=== PATIENT | male | born 1975 | race African-American/Black ===

== ENCOUNTER 2018-05-21 14:35 | Emergency (ER) | payer MEDICAID ==
[~2018-05-21] VITALS: Ht 185.4 cm; Wt 77.3 kg
[2018-05-21 14:57] VITALS: Ht 185.4 cm; Wt 77.3 kg
[2018-05-21] MEDS ORDERED: SEROQUEL50 MG PO (15:00)
[2018-05-21] MEDS ORDERED: ZYPREXA5 MG PO (15:00)
[2018-05-21] MEDS ORDERED: HCTZ25 MG PO (15:01)
[2018-05-21 16:11] LABS: BASOPHILS 0.2 % (0-2); HEMATOCRIT 39.2 % (42.0-54.0); HEMOGLOBIN 13.6 g/dL (13.5-17.5); LYMPHOCYTES 41.5 % (15-50); MCH 29.2 pg (26.0-34.0); MCHC 34.7 g/dL (31.0-37.0); MCV 84.3 fL (80.0-100.0); MEAN PLATELET VOLUME 8.6 fL (7.4-10.4); NEUTROPHILS 43.3 % (40-80); PLATELET COUNT 269 10x3/uL (130-400); RBC 4.65 10x6/uL (4.20-6.10); RDW 14.2 % (11.5-14.5); WBC 4.1 10x3/uL (4.8-10.8)
[2018-05-21 16:32] LABS: ALBUMIN 3.3 g/dL (3.4-5.0); ANION GAP 12.2 mmol/L (8-16); BILIRUBIN - TOTAL 0.49 mg/dL (0.2-1.3); CARBON DIOXIDE 30.4 mmol/L (21.0-32.0); CREATININE - SERUM 1.3 mg/dL (0.6-1.3); MAGNESIUM - SERUM 1.9 mg/dL (1.8-2.4); POTASSIUM - SERUM 3.6 mmol/L (3.5-5.1); PROTEIN - SERUM 7.7 g/dL (6.4-8.2)
[2018-05-21 16:33] LABS: APPEARANCE CLEAR (CLEAR); BILIRUBIN NEGATIVE (NEGATIVE); COLOR YELLOW (YELLOW); GLUCOSE NEGATIVE (NEGATIVE); KETONE NEGATIVE (NEGATIVE); NITRITE NEGATIVE (NEGATIVE); PROTEIN NEGATIVE (NEGATIVE); UDS - AMPHET NEGATIVE QUAL (NEGATIVE); UDS - BARB NEGATIVE QUAL (NEGATIVE); UDS - BENZO NEGATIVE QUAL (NEGATIVE); UDS - COCAINE NEGATIVE QUAL (NEGATIVE); UDS - OPIATE NEGATIVE QUAL (NEGATIVE); UDS - PCP NEGATIVE QUAL (NEGATIVE); UDS - THC NEGATIVE QUAL (NEGATIVE); UROBILINOGEN NORMAL (NORMAL)
[2018-05-21 16:35] LABS: BACTERIA FEW /hpf (NONE SEEN); WHITE CELLS - URINE 0-5 /hpf (0-5)
[2018-05-22 12:58] VITALS: BP 112/80
== END 2018-05-22 14:24 ==
LOC: D.ER 14:35
PROVIDERS: Emergency Medicine
DX: F32.9 Major depressive disorder, single episode, unspecified (principal); Z86.59 Personal history of other mental and behavioral disorders; R45.851 Suicidal ideations; R44.0 Auditory hallucinations; I10 Essential (primary) hypertension; F17.200 Nicotine dependence, unspecified, uncomplicated